=== PATIENT | female | born 1970 | race Caucasian/White ===

== ENCOUNTER 2023-04-07 07:09 | Emergency (ER) | payer OTHER ==
[2023-04-07] MEDS ORDERED: Ibuprofen 400 MG Tab PO ONE (08:27)
[2023-04-07] MEDS ORDERED: Acetaminophen 325 MG Tab PO ONE (08:27)
[2023-04-07] MEDS ORDERED: Albuterol 0.083% 2.5 MG/3 ML Neb Soln NEB ONE (08:27)
[2023-04-07 09:33] LABS: CORONAVIRUS COVID-19 NAA NEGATIVE (NEGATIVE); INFLUENZA A NAA NEGATIVE (NEGATIVE); INFLUENZA B NAA NEGATIVE (NEGATIVE); RESPIRATORY SYNCYTIAL VIR NAA POSITIVE (NEGATIVE)
== END 2023-04-07 10:25 | disposition home or self-care (01) ==
LOC: MW.ED 07:09
DX: R05.9 Cough, unspecified (principal); B97.4 Respiratory syncytial virus as the cause of diseases classified elsewhere; Z20.822 Contact with and (suspected) exposure to COVID-19
CPT/HCPCS: 0241U; 71046; 99284; A9270; J7620-GY